=== PATIENT | female | born 1985 | race Caucasian/White ===

== ENCOUNTER 2017-03-17 15:26 | Emergency (ER) | payer MEDICAID ==
--- NOTE | 2017-03-17 15:50 | EDM.PDOC ---
ED HPI GENERAL MEDICAL PROBLEM - General Chief Complaint: Lower Extremity Injury/Pain Stated Complaint: FOOT PAIN Time Seen by Provider: 03/17/17 15:42 Source of Information: Reports: Patient History Limitations: Reports: No Limitations - History of Present Illness INITIAL COMMENTS - FREE TEXT/NARRATIVE: Patient comes in with right little toe pain. She struck it 2 days ago and thinks she rebroke the toe. She broke it 8 months ago per her report. Was given a protective shoe which she threw away. She is requesting another shoe, has not been to the clinic, doctors in [place]. No other complaints Onset Date: 03/15/17 Duration: Intermittent Location: Reports: Lower Extremity, Right Quality: Reports: Ache Severity: Mild Improves with: Reports: Medication Worsens with: Reports: Movement - Related Data Allergies Allergy/AdvReac Type Severity Reaction Status Date / Time No Known Allergies Allergy Verified 03/17/17 15:38 Home Meds: Home Meds . [No Known Home Meds] 03/17/17 [History] Past Medical History - Past Health History Medical/Surgical History: Denies Medical/Surgical History - Past Surgical History Female Surgical History: Reports: Section Social & Family History - Tobacco Use Smoking Status *Q: Current Every Day Smoker Years of Tobacco use: 5 Packs/Tins Daily: 1 - Recreational Drug Use Recreational Drug Use: No Review of Systems - Review of Systems Review Of Systems: ROS reveals no pertinent complaints other than HPI. ED EXAM, GENERAL - Physical Exam Exam: See Below Exam Limited By: No Limitations General Appearance: Alert, WD/WN, No Apparent Distress Respiratory/Chest: No Respiratory Distress, Lungs Clear, Normal Breath Sounds, No Accessory Muscle Use, Chest Non-Tender Cardiovascular: Normal Peripheral Pulses, Regular Rate, Rhythm Peripheral Pulses: 2+: Posterior Tibial (L), Posterior Tibial (R), Dorsalis Pedis (L), Dorsalis Pedis (R) GI/Abdominal: Normal Bowel Sounds, Soft, Non-Tender Extremities: Normal Inspection, Normal Range of Motion, Non-Tender, No Pedal Edema, Normal Capillary Refill Neurological: Alert, Oriented, CN II-XII Intact, Normal Cognition, Normal Gait, Normal Reflexes, No Motor/Sensory Deficits Psychiatric: Normal Affect, Normal Mood Skin Exam: Warm, Dry, Intact, Ecchymosis (right 5th digit) Course - Re-Assessments/Exams Free Text/Narrative Re-Assessment/Exam: 03/17/17 15:47 x-ray of right foot ordered. I did review and provide patient education that an emergency room is usually not the first place to go after 2 days of a suspected broken toe. I asked why she did not try to go to the clinic and she stated she did not want to go to [place]. She also doctors in [place] and told The RN Meliza that her car would not make it there. 03/17/17 16:27 result reviewed. X-ray was negative. I did review with her that it was negative. While typing up her paperwork she left without it saying that our hospitality sucked and that we made someone with maybe a broken toe feel bad for coming to the ER. As above, I did review the appropriate use of emergency rooms, and a 2 day old possible fracture should have been seen at a clinic. She was appropriate until after her results then left while using obscenities. Departure - Departure Time of Disposition: 16:20 Disposition: Home, Self-Care 01 Condition: Good Clinical Impression: Toe sprain - Discharge Information Instructions: Foot Sprain Forms: ED Department Discharge
[2017-03-17 16:01] VITALS: BP 129/79
== END 2017-03-17 16:20 | disposition home or self-care (01) ==
LOC: VM.ED 15:26
DX: S93.504A Unspecified sprain of right lesser toe(s), initial encounter (principal); F17.210 Nicotine dependence, cigarettes, uncomplicated; W22.8XXA Striking against or struck by other objects, initial encounter
CPT/HCPCS: 73620-RT; 99283

== ENCOUNTER 2017-06-05 11:09 | Emergency (ER) | payer MEDICAID ==
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
[2017-06-05 11:31] VITALS: BP 113/70
== END 2017-06-05 13:00 | disposition home or self-care (01) ==
LOC: VM.ED 11:09
DX: T24.022A Burn of unspecified degree of left knee, initial encounter (principal); S40.011A Contusion of right shoulder, initial encounter; S20.212A Contusion of left front wall of thorax, initial encounter; S40.022A Contusion of left upper arm, initial encounter; S40.021A Contusion of right upper arm, initial encounter; S80.12XA Contusion of left lower leg, initial encounter; S80.11XA Contusion of right lower leg, initial encounter; F17.210 Nicotine dependence, cigarettes, uncomplicated; Y04.2XXA Assault by strike against or bumped into by another person, initial encounter
CPT/HCPCS: 71020; 73010-RT; 99283

== ENCOUNTER 2021-11-28 14:19 | Emergency (ER) | payer BC, MEDICAID ==
[2021-11-28] MEDS: Ondansetron 4 MG Tab.DIS PO ONE (14:34)
[2021-11-28 15:00] VITALS: BP 128/94; PULSE 90
[2021-11-28] MEDS: Ketorolac 30 MG/ML SDV IM ONE (15:58)
== END 2021-11-28 16:08 | disposition home or self-care (01) ==
LOC: VM.ED 14:19
DX: S00.83XA Contusion of other part of head, initial encounter (principal); W50.0XXA Accidental hit or strike by another person, initial encounter
CPT/HCPCS: 70450; 70486; 96372; 99283; 99285-25; A9270-GY; J1885

== ENCOUNTER 2022-02-15 06:05 | Emergency (ER) | payer OTHER, MEDICAID ==
[2022-02-15] MEDS ORDERED: Acetaminophen/HYDROcodone 325-10 MG Tab PO ONE (06:49)
[2022-02-15] MEDS ORDERED: Take Home: Acetaminophen/HYDROcodone 325-5 MG, 5 Tab Pack PO ONE (06:50)
[2022-02-15 07:04] VITALS: BP 122/82; PULSE 82
[2022-02-15] MEDS ORDERED: Lidocaine 1% 5 ML VIAL INJECT ONE (07:26)
== END 2022-02-15 08:28 | disposition home or self-care (01) ==
LOC: VM.ED 06:05
DX: S42.021A Displaced fracture of shaft of right clavicle, initial encounter for closed fracture (principal); S01.01XA Laceration without foreign body of scalp, initial encounter; M25.511 Pain in right shoulder; V29.9XXA Motorcycle rider (driver) (passenger) injured in unspecified traffic accident, initial encounter
CPT/HCPCS: 12001; 73030-RT; 99283; 99283-25; A9270-GY

== ENCOUNTER 2022-03-08 22:17 | Emergency (ER) | payer MEDICAID ==
[2022-03-09 04:07] VITALS: BP 126/79; PULSE 79
== END 2022-03-08 23:14 | disposition home or self-care (01) ==
LOC: VM.ED 22:17
DX: G89.18 Other acute postprocedural pain (principal)
CPT/HCPCS: 73000-RT; 99283; 99283-25